=== PATIENT | female | born 1995 | race Caucasian/White ===

== ENCOUNTER 2016-10-10 14:25 | Emergency (ER) | payer OTHER ==
--- NOTE | ~2016-10-10 | CT4 ---
[facility] A Service of [facility] RADIOLOGY TEXT RESULTS PATIENT: PETTY SMALLS LOCATION: SED : 96 UNIT #: [id number] AGE: [address]: Carl Washington DO SEX: F ORDER DR: [id number] [place] [id number] E MR#: [id number] Acc #: [id number] NAME: PETTY SMALLS. : 1995 SEX: F STUDY DATE/TIME: 10/10/2016 15:12 UNIT: SED ROOM: STUDY DESCRIPTION: CT Abd and Pelv Wo Cont Attending Physician: Carl Washington Ordering Physician: Carl Washington MEDICAL IMAGING REPORT This report is preliminary unless electronic signature is present. EXAM CT abdomen and pelvis without contrast HISTORY 21-year-old female, abdominal pain, right lower quadrant pain since yesterday, constipation. FINDINGS Axial images performed through the abdomen and pelvis without contrast. Multiplanar reconstructed images reviewed at a workstation. This CT exam was performed with one or more of the following radiation dose reduction techniques: Automatic exposure control, adjustment of mA and/or kV according to patient size, and iterative reconstruction. ABDOMEN: Lung bases unremarkable. Liver, spleen unremarkable. Several subtle low densities are seen within the gallbladder and may represent cholesterol stones. Pancreas, kidneys and adrenal glands unremarkable on this unenhanced study. No free air or free fluid. The visualized GI tract, to include the appendix, is normal. Retroperitoneum unremarkable. PELVIS: Bladder and uterus unremarkable. There is a 3.4 cm low-attenuation lesion in the right adnexa probably represents the right ovarian complex and probable right ovarian cyst. No free fluid. Osseous structures and soft tissues appear normal. IMPRESSION 1. Suspected small cholesterol gallstones but no evidence of cholecystitis. 2. Normal appendix. 3. Prominent right ovarian complex, right adnexa with a suspected right ovarian cyst measuring up to 3.4 cm. [facility] A Service [facility] RADIOLOGY TEXT RESULTS PATIENT: PETTY SMALLS LOCATION: SED : 96 UNIT #: [id number] AGE: [address]: Carl Washington DO SEX: F ORDER DR: Dictated by... Alexandra Parker M.D. THIS IS AN ELECTRONICALLY VERIFIED REPORT Alexandra Parker M.D. at 10/11/2016 1:06 PM EUNICE/ramakrishna TD: 10/10/2016 17:17 JOB #: [id number] MEDICAL IMAGING REPORT Page 1 of 1
[~2016-10-10 14:25] MED LIST: ELIMITE60 GM TOP; IBUPROFEN PO; IBUPROFEN800 MG PO; MACROBID100 M1; MACROBID100 M1 PO; MONONESSA 28 T1 EACH PO; NO MEDICATIONS; PHENERGAN25 M1 PO; PRENATAL1 TA1 PO; VOL-TAB RX TAB1 EACH PO; ZOFRAN PO
[2016-10-10 14:31] LABS: URINE SOURCE CLEAN CATCH
[2016-10-10 14:35] LABS: URINE APPEARANCE SL CLOUDY; URINE BILIRUBIN NEG (NEG); URINE BLOOD NEG (NEG); URINE COLOR YELLOW; URINE GLUCOSE NEG (NORM); URINE KETONE TRACE (NEG); URINE LEUKOCYTE ESTERASE TRACE (NEG); URINE NITRATE NEG (NEG); URINE PROTEIN TRACE (NEG)
[2016-10-10 14:37] LABS: BASOPHIL% 0.4 % (0-2.5); EOSINOPHIL# 0.2 X10e3 (0-0.7); EOSINOPHIL% 2.3 % (0.0-7.0); HEMATOCRIT 37.1 % (35.0-45.0); HEMOGLOBIN 12.2 gm/dL (12.0-16.0); LYMPHOCYTE# 1.4 X10e3 (1.0-3.5); LYMPHOCYTE% 16.4 % (17.0-45.0); MEAN CELL VOLUME 84.6 FL (83-96); MEAN CORPUSCULAR HEMOGLOBIN 27.9 PG (28-34); MEAN CORPUSCULAR HGB CONC 32.9 g/dL (30-36); MEAN PLATELET VOLUME 7.7 FL (6.5-11.5); MONOCYTE# 0.4 X10e3 (0-1.0); MONOCYTE% 4.9 % (3.0-12.0); NEUTROPHIL# 6.7 X10e3 (1.5-7.1); PLATELET COUNT 203 X10e3 (140-420); RED BLOOD COUNT 4.38 X10e (3.90-5.30); RED CELL DISTRIBUTION WIDTH 14.5 % (11.0-15.5); WHITE BLOOD COUNT 8.8 X10e3 (4.0-10.5)
[2016-10-10 14:38] LABS: DIFF IND NO; MICRO INDICATED? YES
[2016-10-10 14:44] LABS: CULTURE INDICATED? YES; URINE BACTERIA 3+ (NEG); URINE RBC 0-2 /[HPF] (0-2); URINE SQUAMOUS EPITHELIAL CELL MANY /[HPF]
[2016-10-10 14:45] LABS: URINE MUCUS PRESENT
[2016-10-10 14:54] LABS: ALBUMIN SERUM 4.1 g/dL (3.5-5.0); BILIRUBIN, DIRECT 0.1 mg/dL (0.0-0.2); BILIRUBIN,TOTAL 1.1 mg/dL (0.2-2.0); CALCIUM SERUM 9.1 mg/dL (8.4-10.2); CREATININE SERUM 0.7 mg/dL (0.6-1.4); GLOM FILT RATE Estimated 124.7 mL/min (>60); POTASSIUM 3.8 mmol/L (3.5-5.1); PROTEIN TOTAL SERUM 6.9 g/dL (6.0-8.3)
== END 2016-10-10 16:14 | disposition home or self-care (01) ==
LOC: SED 14:25
PROVIDERS: Emergency Medicine
DX: N30.00 Acute cystitis without hematuria (principal); K80.80 Other cholelithiasis without obstruction; Z98.890 Other specified postprocedural states
CPT/HCPCS: 36415; 74176; 80048; 80076; 81003; 82150; 83690; 84703; 85025; 87086; 96374; 96375; 99284; J1885; J2405

== ENCOUNTER 2016-11-29 07:07 | Emergency (ER) | payer OTHER ==
--- NOTE | ~2016-11-29 | CR21 ---
[facility] A Service [facility] RADIOLOGY TEXT RESULTS PATIENT: PETTY SMALLS LOCATION: SED : 96 UNIT #: [id number] AGE: [address]: Beni Salazar MD SEX: F ORDER DR: [id number] [place] [id number] E MR#: [id number] Acc #: [id number] NAME: PETTY SMALLS : 1995 SEX: F STUDY DATE/TIME: 11/29/2016 7:58 UNIT: SED ROOM: STUDY DESCRIPTION: CR Ankle Min 3 Views Rt Attending Physician: Beni Salazar M.D. Ordering Physician: Beni Salazar M.D. Primary Care Physician: [facility] MEDICAL IMAGING REPORT This report is preliminary unless electronic signature is present. EXAM 3 views of the right ankle. Date: 11/29/2016 HISTORY Bruising along the midshaft of the right tibia-fibula and lateral right ankle after falling down steps last night while carrying a dresser. COMPARISON Right ankle radiographs 10/22/2015. FINDINGS AP, lateral, and oblique projections of the ankle show satisfactory integrity of the joint mortise with a smooth articular surface. There is no identifiable fracture, dislocation, or radiopaque foreign body. IMPRESSION Normal right ankle. Dictated by... Nancy Pride M.D. THIS IS AN ELECTRONICALLY VERIFIED REPORT Nancy Pride M.D. at 11/30/2016 8:46 AM KINDRA/yulia TD: 11/29/2016 10:47 JOB #: [id number] MEDICAL IMAGING REPORT [facility] A [facility] RADIOLOGY TEXT RESULTS PATIENT: PETTY SMALLS LOCATION: SED : 96 UNIT #: [id number] AGE: [address]: Beni Salazar MD SEX: F ORDER DR: Page 1 of 1
--- NOTE | ~2016-11-29 | CR253 ---
[facility] A Service of [facility] RADIOLOGY TEXT RESULTS PATIENT: PETTY SMALLS LOCATION: SED : 96 UNIT #: [id number] AGE: [address]: Beni Salazar MD SEX: F ORDER DR: [id number] [place] [id number] E MR#: [id number] Acc #: [id number] NAME: PETTY SMALLS : 1995 SEX: F STUDY DATE/TIME: 11/29/2016 7:58 UNIT: SED ROOM: STUDY DESCRIPTION: CR Tibia and Fibula 2 Views Rt Attending Physician: Beni Salazar M.D. Ordering Physician: Beni Salazar M.D. Primary Care Physician: [facility] MEDICAL IMAGING REPORT This report is preliminary unless electronic signature is present. EXAM Right tibia and fibula series. 11/29/2016 HISTORY Trauma 9 p.m. last night, fell down steps carrying a dresser. Pain, bruising midshaft and lateral ankle. FINDINGS AP and lateral radiographs of the right tibia and fibula are presented. No traumatic fracture or malalignment. The knee and ankle joints appear normal in their visualized extent. No soft tissue defect, subcutaneous air or radiodense foreign body. Dictated by... Jamaal Preston M.D. THIS IS AN ELECTRONICALLY VERIFIED REPORT Jamaal Preston M.D. at 11/30/2016 5:16 PM Isidro TD: 11/29/2016 10:35 JOB #: [id number] MEDICAL IMAGING REPORT Page 1 of 1
== END 2016-11-29 09:04 | disposition home or self-care (01) ==
LOC: SED 07:07
DX: S93.421A Sprain of deltoid ligament of right ankle, initial encounter (principal); S80.11XA Contusion of right lower leg, initial encounter; F17.200 Nicotine dependence, unspecified, uncomplicated; W10.9XXA Fall (on) (from) unspecified stairs and steps, initial encounter; Y92.009 Unspecified place in unspecified non-institutional (private) residence as the place of occurrence of the external cause
CPT/HCPCS: 29540; 73590; 73610; 99283